=== PATIENT | male | born 1990 | race Caucasian/White ===

== ENCOUNTER 2019-08-13 14:29 | Outpatient (CLI) | payer BC, SELFPAY ==
[2019-08-13 14:50] LABS: Basophils Percent Auto 0.4 % (0.2-1.2); Eosinophils Percent Auto 0.8 % (0-4.4); Hematocrit 44.6 % (42.0-52.0); Hemoglobin 15.3 g/dL (14.0-18.0); Lymphocytes Absolute Auto 1.67 K/mm3 (0.9-3.2); Lymphocytes Percent Auto 33.3 % (18.3-44.2); Mean Corpuscular HGB Conc 34.3 g/dl (32-36); Mean Corpuscular Hemoglobin 29.4 pg (26-34); Mean Corpuscular Volume 85.8 fl (80-100); Mean Platelet Volume 10.7 fl (7.4-10.4); Monocytes Absolute Auto 0.4 K/mm3 (0.1-0.6); Monocytes Percent Auto 8.8 % (2.6-8.5); Neutrophils Absolute Auto 2.8 K/mm3 (1.3-6.7); Neutrophils Percent Auto 56.7 % (45.5-73.1); Platelet Count Result 185 k/mm3 (150-375); Red Cell Distribution Width 12.3 % (11.5-14.5)
== END 2019-08-13 14:30 | disposition home or self-care (01) ==
LOC: ANHLAB 14:32
PROVIDERS: PCP Family Medicine; Visit Provider Physician Assistant
DX: L53.9 Erythematous condition, unspecified (principal)
CPT/HCPCS: 36415; 85025

== ENCOUNTER 2019-12-08 14:40 | Outpatient (CLI) | payer BC, SELFPAY ==
--- NOTE | ~2019-12-08 | XR_ITS ---
EXAMINATION: XR lumbar spine 2-3V EXAM DATE: 12/08/2019 15:07 INDICATION: Low back pain. Bilateral leg pain. TECHNIQUE: Lumber spine frontal, lateral, lateral L5-S1 projections for interpretation. There is no prior study for comparison. Correlation was made with CT lumbar spine from 2012. FINDINGS: There is unilateral pars defect identified at the L3 level on the lateral projection, was an acute or subacute fracture of the right pars interarticularis on CT scan in 2012. No other pars de fects identified. The vertebral bodies are aligned in the AP dimension. Mild diffuse thoracolumbar disc disease with tiny Schmorl's nodes. The vertebral body heights are maintained. Minimal lumbar fac et arthropathy. Sacrum, sacroiliac joints, sacral arcuate lines are intact. IMPRESSION: 1. Chronic right L3 spondylolysis. 2. Mild lumbar disc disease. Reviewed, dictated and finalized at location A.
--- NOTE | ~2019-12-08 | XR_ITS ---
EXAMINATION: XR hip BI 2V w AP pelvis EXAM DATE: 12/08/2019 15:08 INDICATION: Low back and bilateral leg pain. TECHNIQUE: Each hip imaged independently (separate right and also left hip) 'frog leg' and frontal p rojections for interpretation. Frontal projection pelvis. There is no prior study for comparison. FINDINGS: No radiographic evidence of hip avascular necrosis. Sacrum, sacroiliac joints, sacral arc uate lines are intact. Hip and sacroiliac joints are symmetric and unremarkable. There are no acute f ractures or dislocations identified. There is no subcutaneous gas. The soft tissue is unremarkable. There are no radiopaque foreign bodies. IMPRESSION: Unremarkable pelvis, hip exam. Reviewed, dictated and finalized at location A.
== END 2019-12-08 14:41 | disposition home or self-care (01) ==
PROVIDERS: PCP Family Medicine; Visit Provider Physician Assistant
DX: M51.36 Other intervertebral disc degeneration, lumbar region (principal); M47.896 Other spondylosis, lumbar region
CPT/HCPCS: 72100; 73521

== ENCOUNTER 2020-03-23 09:50 | Outpatient (CLI) | payer BC, SELFPAY ==
[2020-03-23 10:23] LABS: Hematocrit 45.8 % (42.0-52.0); Hemoglobin 15.9 g/dL (14.0-18.0); Mean Corpuscular HGB Conc 34.7 g/dl (32-36); Mean Corpuscular Hemoglobin 29.4 pg (26-34); Mean Corpuscular Volume 84.7 fl (80-100); Mean Platelet Volume 10.5 fl (7.4-10.4); Platelet Count Result 183 k/mm3 (150-375); Red Blood Count 5.41 M/mm3 (4.6-6.20); White Blood Count 4.8 K/mm3 (4.5-10.0)
[2020-03-23 10:36] LABS: Alanine Aminotransferase 31 U/L (4-50); Albumin Level 4.5 g/dL (3.5-5.1); Alkaline Phosphatase 55 U/L (38-126); Anion Gap 6 mmol/L (8-16); Aspartate Amino Transferase 30 U/L (17-59); Bilirubin,Total 0.7 mg/dL (0.2-1.3); Blood Urea Nitrogen 13 mg/dL (9-20); Calcium 9.2 mg/dL (8.4-10.2); Carbon Dioxide 29 mmol/L (22-30); Chloride 103 mmol/L (98-107); Estimated Glomerular Filt Rate > 60; Glucose 104 mg/dL (75-110); Potassium 4.5 mmol/L (3.4-5.0); Sodium 138 mmol/L (137-145)
[2020-03-23 11:41] LABS: Folic Acid 19.7 ng/mL (2.76->20)
[2020-03-28 00:06] LABS: Vitamin D 1,25 (OH)2 Total 58 pg/mL (18-72); Vitamin D2 1,25 (OH)2 <8 pg/mL; Vitamin D3 1,25 (OH)2 58 pg/mL
== END 2020-03-23 09:51 | disposition home or self-care (01) ==
LOC: ANHLAB 09:52
PROVIDERS: PCP Family Medicine; Visit Provider Physician Assistant
DX: E53.8 Deficiency of other specified B group vitamins (principal); E55.9 Vitamin D deficiency, unspecified; R20.2 Paresthesia of skin
CPT/HCPCS: 36415; 80053; 82607; 82652; 82746; 84443; 85027

== ENCOUNTER 2020-04-11 16:56 | Emergency (ER) | payer BC, SELFPAY ==
--- NOTE | 2020-04-11 17:01 | ED.GENADULT ---
HPI - General Adult General Stated complaint: laceration 2nd finger Time Seen by Provider: 04/11/20 17:01 Source: patient Mode of arrival: ambulatory Limitations: no limitations Related Data Home Medications Medication Instructions Recorded Confirmed hydroxyzine HCl 25 mg tablet 25 mg PO TID PRN 12/08/19 03/30/20 lamotrigine 25 mg tablet 25 mg PO DAILY tablet 12/29/19 03/30/20 Allergies Allergy/AdvReac Type Severity Reaction Status Date / Time Penicillins Allergy Unknown rash Verified 03/30/20 10:09 Review of Systems Review of Systems: Narrative: CONSTITUTIONAL: Denies fever, chills, or sweats. EYES: Denies visual changes, redness, or discharge. ENT: Denies rhinorrhea, congestion, sore throat, or otalgia. CARDIOVASCULAR: Denies chest pain, palpitations, or edema. RESPIRATORY: Denies cough or dyspnea. GASTROINTESTINAL: Denies abdominal pain, nausea, vomiting, or diarrhea. GENITOURINARY: Denies dysuria or hematuria. SKIN: Denies rash or itching. MUSCULOSKELETAL: Denies back pain, joint pain, or myalgia. NEUROLOGIC: Denies headache, numbness, or weakness. PSYCHIATRIC: Denies anxiety or depression. PMFSH Past Medical History Medical History Atypical chest pain GERD (gastroesophageal reflux disease) Family History Family History Father Family history of throat cancer Social History Social History Social History: Single Smoking status: Never smoker Second hand tobacco smoke exposure: No Alcohol intake: never Substance use: never Substance use type: does not use Gender identity (if verbalized by the patient): Male Comments At the time of my signature I agree with nursing past medical history, surgical, social, and family history. There is no relevant family history pertinent to the presenting complaint. Exam Narrative: Exam Narrative: GENERAL: Well-appearing, well-nourished, and in no acute distress. HEAD: Normocephalic, atraumatic. EYES: PERRLA and EOMI. ENT: Nares clear, no rhinorrhea or epistaxis. Mucous membranes moist. NECK: Supple. No lymphadenopathy CHEST: Clear to auscultation. No respiratory distress. HEART: Regular rate and rhythm. No murmur heard. Normal peripheral pulses. ABDOMEN: Soft, nontender, nondistended, normal active bowel sounds. EXTREMITIES: Normal range of motion. No edema. SKIN: Warm, dry, no rash. NEURO: No focal deficits. Alert and oriented x3. Course Vital Signs Vital signs: Vital signs reviewed. Medical Decision Making Differential Diagnosis Differential Diagnosis: Differential diagnosis: Simple, intermediate, or complex laceration. Critical Care Time Critical Care Time Critical Care Time: No Discharge Plan Discharge Prescriptions: No Action hydroxyzine HCl 25 mg tablet 25 mg PO TID PRNRF: 0 lamotrigine 25 mg tablet 25 mg PO DAILY RF: 0
== END 2020-04-11 17:05 | disposition left against medical advice (07) ==
LOC: EXPCOLL 17:01
PROVIDERS: Emergency Provider Internal Medicine Hematology & Oncology; PCP Family Medicine
DX: Z53.21 Procedure and treatment not carried out due to patient leaving prior to being seen by health care provider (principal)
CPT/HCPCS: 99199

== ENCOUNTER 2020-06-25 11:23 | Emergency (ER) | payer BC, SELFPAY ==
--- NOTE | ~2020-06-25 | XR_ITS ---
EXAMINATION: XR chest 1V portable DATE: 06/25/2020 12:20 INDICATION: Shortness of breath. TECHNIQUE: A single frontal view of the chest was obtained. COMPARISON: Chest 2 views 09/08/2015 FINDINGS: The chest demonstrates clear lungs without pneumonia, pleural effusion, or pneumothorax. Th e heart size is normal. IMPRESSION: 1. No acute cardiopulmonary disease. Reviewed, dictated and finalized at location A. 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
[2020-06-25 11:28] VITALS: BP 134/77; PULSE 80; RESP 20; TEMP 36.2; O2SAT 98
--- NOTE | 2020-06-25 12:21 | ED.GENADULT ---
HPI - General Adult General Chief complaint: Unspecified <ZEYNEP Sawyer Last Filed: 06/25/20 12:26> Stated complaint: COVID+, WEAKNESS <ZEYNEP Sawyer Last Filed: 06/25/20 12:26> Time Seen by Provider: 06/25/20 11:35 <ZEYNEP Sawyer Last Filed: 06/25/20 12:26> Source: patient <ZEYNEP Sawyer Last Filed: 06/25/20 12:26> Mode of arrival: ambulatory <ZEYNEP Sawyer Last Filed: 06/25/20 12:26> Limitations: no limitations <ZEYNEP Sawyer Last Filed: 06/25/20 12:26> History of Present Illness HPI narrative: Patient is a 29-year-old male who presents notes that he discovered he was Covid positive this morning with positive test result patient notes he has been mainly asymptomatic states today he lost sense of smell with decreased taste and also noting some shortness of breath denies cough does note some congestion denies fever or other URI symptoms patient also notes he was at a [employer] last night intoxicated but denies emesis or abdominal pain or chest pain notes that he has had some loose stools presents in no distress normal vital signs <ZEYNEP Sawyer Last Filed: 06/25/20 12:26> Related Data Home medications: Home Medications Medication Instructions Recorded Confirmed hydroxyzine HCl 25 mg tablet 25 mg PO TID PRN 12/08/19 03/30/20 lamotrigine 25 mg tablet 25 mg PO DAILY tablet 12/29/19 03/30/20 <ZEYNEP Sawyer Last Filed: 06/25/20 12:26> Allergies/adverse reactions: Allergies Allergy/AdvReac Type Severity Reaction Status Date / Time Penicillins Allergy Unknown rash Verified 04/19/20 15:11 <ZEYNEP Sawyer Last Filed: 06/25/20 12:26> Review of Systems Review of Systems: All systems reviewed & are unremarkable except as noted in HPI and below <ZEYNEP Sawyer Last Filed: 06/25/20 12:26> PMFSH Past Medical History Medical History: Medical History Atypical chest pain GERD (gastroesophageal reflux disease) <Roman Catalan PA-C - Last Filed: 06/25/20 12:26> Surgical History Surgical History: Surgical History History of tonsillectomy <Roman Catalan PA-C - Last Filed: 06/25/20 12:26> Family History Family History: Family History Father Family history of throat cancer <Roman Catalan PA-C - Last Filed: 06/25/20 12:26> Social History Social History: Social History Social History: Single Smoking status: Former smoker Second hand tobacco smoke exposure: No Alcohol intake: current Substance use: never Substance use type: does not use Gender identity (if verbalized by the patient): Male <Roman Catalan PA-C - Last Filed: 06/25/20 12:26> Exam Narrative: Exam Narrative: GENERAL: Well-appearing, well-nourished, and in no acute distress. HEAD: Normocephalic, atraumatic. EYES: PERRLA and EOMI. ENT: Nares clear, no rhinorrhea or epistaxis. Mucous membranes moist. CHEST: Clear to auscultation. No respiratory distress. No wheezes rales or rhonchi HEART: Regular rate and rhythm. No murmur heard. EXTREMITIES: Normal range of motion. No edema. SKIN: Warm, dry, no rash. NEURO: No focal deficits. Alert and oriented x3. PSYCH: Normal mood and affect. <Roman Catalan PA-C - Last Filed: 06/25/20 12:26> Course Course Emergency Course: Patient in the room in no distress aware of case findings treatment plan diagnosis advised to self quarantine no pneumonia no hypoxemia patient notes he will follow with primary care this is felt appropriately will be treated symptomatically has been advised to get a home oximeter and stay hydrated <Roman Catalan PA-C - Last Filed: 06/25/20 12:26> Vital
[2020-06-25 13:01] VITALS: BP 120/75; PULSE 66; RESP 17; TEMP 37.5; O2SAT 100
== END 2020-06-25 13:03 | disposition home or self-care (01) ==
PROVIDERS: Emergency Provider General Practice; PCP Family Medicine
DX: U07.1 COVID-19 (principal); K21.9 Gastro-esophageal reflux disease without esophagitis; Z87.891 Personal history of nicotine dependence
CPT/HCPCS: 71045; 99283

== ENCOUNTER 2020-07-06 13:41 | Emergency (ER) | payer BC, SELFPAY ==
--- NOTE | ~2020-07-06 | XR_ITS ---
XR chest 1V portable DATE: 07/06/2020 14:27 INDICATION: Chest pain, palpitations TECHNIQUE: Portable upright AP chest on 07/06/2020 at 1427 hours COMPARISON: 06/25/2020 portable AP chest FINDINGS: Normal heart size. No hilar or mediastinal enlargement. No pulmonary infiltrate or consolid ation, pleural effusion or pulmonary vascular congestion or pneumothorax. IMPRESSION: No active cardiopulmonary disease Reviewed, dictated and finalized at location A. RANCE EXAMINER
[2020-07-06 13:46] VITALS: BP 145/89; PULSE 83; RESP 18; TEMP 36.4; O2SAT 100
[2020-07-06 13:49] VITALS: BP 142/82; PULSE 77; RESP 17; O2SAT 97
--- NOTE | 2020-07-06 13:51 | ECG_ITS ---
Measurements Intervals [place] Rate: 82 P: 42 WY: 134 QRS: 51 QRSD: 104 T: 14 QT: 356 QTc: 416 Interpretive Statements SINUS RHYTHM WITH SINUS ARRHYTHMIA T WAVE ABNORMALITY IN ANTERIOR LEADS- CONSIDER ISCHEMIA ABNORMAL ECG Electronically Signed On 07-06-2020 14:32:49 [place] by Pito Molina D.O.
[2020-07-06 14:01] LABS: Basophils Percent Auto 0.3 % (0.2-1.2); Eosinophils Absolute Auto 0.1 K/mm3 (0-0.3); Hemoglobin 16.7 g/dL (14.0-18.0); Immature Granulocyte Absolute 0.02 K/mm3 (0.00-0.031); Immature Granulocyte Percent A 0.3 % (0-0.5); Lymphocytes Absolute Auto 1.72 K/mm3 (0.9-3.2); Lymphocytes Percent Auto 28.3 % (18.3-44.2); Mean Corpuscular HGB Conc 34.8 g/dl (32-36); Mean Corpuscular Hemoglobin 29.9 pg (26-34); Mean Corpuscular Volume 85.9 fl (80-100); Mean Platelet Volume 10.5 fl (7.4-10.4); Monocytes Absolute Auto 0.4 K/mm3 (0.1-0.6); Monocytes Percent Auto 7.1 % (2.6-8.5); Neutrophils Absolute Auto 3.8 K/mm3 (1.3-6.7); Platelet Count Result 194 k/mm3 (150-375); Red Blood Count 5.59 M/mm3 (4.6-6.20); Red Cell Distribution Width 12.3 % (11.5-14.5); White Blood Count 6.1 K/mm3 (4.5-10.0)
[2020-07-06 14:10] LABS: Prothrombin Time 13.6 Seconds (11.1-14.7)
[2020-07-06 14:11] LABS: Partial Thromboplastin Time 27.5 SECONDS (22.3-36.8)
[2020-07-06 14:14] LABS: Anion Gap 8 mmol/L (8-16); Blood Urea Nitrogen 14 mg/dL (9-20); Calcium 9.3 mg/dL (8.4-10.2); Carbon Dioxide 28 mmol/L (22-30); Chloride 102 mmol/L (98-107); Estimated CRCL calculation 127 ml/min; Estimated Glomerular Filt Rate > 60; Glucose 140 mg/dL (75-110); Potassium 4.3 mmol/L (3.4-5.0); Sodium 138 mmol/L (137-145)
[2020-07-06 14:27] LABS: Troponin I < 0.012 ng/mL (0.000-0.034)
[2020-07-06 15:20] VITALS: BP 118/80; PULSE 69; RESP 17; O2SAT 98
[2020-07-06 15:53] VITALS: BP 119/79; PULSE 81; RESP 16; O2SAT 99
--- NOTE | 2020-07-06 16:03 | ED.ARRPALP ---
HPI - Arrhythmia/Palpitations General Chief Complaint: Arrhythmia/Palpitations Stated Complaint: heart palpitations Time Seen by Provider: 07/06/20 13:54 History of Present Illness HPI narrative: Patient is a 29-year-old male who presents to the ER with feeling of having skipped heartbeats. Reports he has been noticing that his heart beats hard and then he will miss a beat. Sometimes it makes him feel like he is lightheaded. Seems last for the second or last. No chest pain or chest pressure. Has had recent diagnosis of COVID-19 and has not yet been cleared. He began having symptoms on 06/22/2020. Currently not having fevers or chills or sweats. No productive cough or shortness of breath. Just persistent fatigue. Reports his symptoms seem to worsen if he drinks caffeine. Related Data Allergies Allergy/AdvReac Type Severity Reaction Status Date / Time Penicillins Allergy Unknown rash Verified 07/06/20 13:48 Review of Systems Review of Systems: All systems reviewed & are unremarkable except as noted in HPI and below Constitutional: Constitutional: Denies chills, Reports fatigue and Denies fever(s) ENT: Denies nasal congestion and Denies sore throat Cardiovascular: Cardiovascular: Denies chest pain, Denies rapid heart rate and Denies radiating jaw, neck or arm pain Comments: Skipped beats Respiratory: Respiratory: Denies cough and Denies dyspnea Gastrointestinal: Gastrointestinal: Denies nausea and Denies vomiting Neurologic: Reports dizziness, Denies syncope and Denies headache(s) PMFSH Past Medical History Medical History Atypical chest pain GERD (gastroesophageal reflux disease) Surgical History Surgical History History of tonsillectomy Family History Family History Father Family history of throat cancer Social History Social History Social History: Single Smoking status: Former smoker Second hand tobacco smoke exposure: No Alcohol intake: current Substance use: never Substance use type: does not use Gender identity (if verbalized by the patient): Male Exam Narrative: Exam Narrative: GENERAL: Well-appearing, well-nourished, and in no acute distress. HEAD: Normocephalic, atraumatic. ENT: Mucous membranes moist. CHEST: Clear to auscultation. No respiratory distress. HEART: Regular rate and rhythm. Normal peripheral pulses. ABDOMEN: Soft, nontender, nondistended. EXTREMITIES: Normal range of motion. No edema. NEURO: Alert and oriented x3. PSYCH: Normal mood and affect. Course Course Emergency Course: Patient did have a few PVCs on monitor while in the ER. Suspect he may be having symptomatic PVCs. No actual runs. Discharge home. Follow-up with his PCP, discuss Holter monitoring if needed. Avoid caffeine. Vital Signs Vital signs: Vital Signs Temperature 97.5 F L 07/06/20 13:46 Pulse Rate 83 07/06/20 13:46 Respiratory Rate 18 07/06/20 13:46 Blood Pressure 145/89 H 07/06/20 13:46 Pulse Oximetry 100 07/06/20 13:46 Temperature 97.5 F L 07/06/20 13:46 Pulse Rate 81 07/06/20 15:53 Respiratory Rate 16 07/06/20 15:53 Blood Pressure 119/79 07/06/20 15:53 Pulse Oximetry 99 07/06/20 15:53 MDM - Arrhythmia/Palpitations Lab Data Result diagrams: 07/06/20 13:53 07/06/20 13:53 Labs: Lab Results 07/06/20 07/06/20 07/06/20 Range/Units 13:53 13:53 13:53 WBC 6.1 (4.5-10.0) K/mm3 RBC 5.59 (4.6-6.20) M/mm3 Hgb 16.7 (14.0-18.0) g/dL Hct 48.0 (42.0-52.0) % MCV 85.9 (80-100) fl MCH 29.9 (26-34) pg MCHC 34.8 (32-36) g/dl RDW 12.3 (11.5-14.5) % Plt Count 194 (150-375) k/mm3 MPV 10.5 H (7.4-10.4) fl Immature Gran % (Auto) 0.3 (0-0.5) % Neut % (
[2020-07-06 17:01] VITALS: BP 119/80; PULSE 63; RESP 18; O2SAT 100
== END 2020-07-06 17:03 | disposition home or self-care (01) ==
PROVIDERS: Emergency Provider Emergency Medicine; PCP Family Medicine
DX: I49.3 Ventricular premature depolarization (principal); K21.9 Gastro-esophageal reflux disease without esophagitis
CPT/HCPCS: 36415; 71045; 80048; 84484; 85025; 85610; 85730; 93005; 99284

== ENCOUNTER 2020-09-15 13:48 | Outpatient (CLI) | payer BC, SELFPAY ==
[2020-09-15 16:27] LABS: Rheumatoid Factor < 8.6 IU/ML (<12)
[2020-09-19 09:09] LABS: ANA Cascade Screen Negative (Negative)
== END 2020-09-15 13:49 | disposition home or self-care (01) ==
LOC: ANHLAB 13:51
PROVIDERS: PCP Family Medicine; Visit Provider Nurse Practitioner Family
DX: M25.50 Pain in unspecified joint (principal); R53.83 Other fatigue
CPT/HCPCS: 36415; 86038; 86430

== ENCOUNTER 2020-10-06 09:56 | Outpatient (CLI) | payer BC, SELFPAY ==
--- NOTE | ~2020-10-06 | US_ITS ---
US abdomen complete EXAMINATION: US Abdomen Complete INDICATION: Abdomen pain PROCEDURE: Realtime High Resolution abdomen ultrasound. COMPARISON: No prior studies for comparison FINDINGS: Gallbladder within normal limits. No gallstones, pericholecystic fluid, gallbladder wall t hickening or biliary dilatation. Common bile duct measures 3 mm. Liver echotexture within normal limits without focal mass. Pancreas within normal limits. Pancreati c tail is obscured by bowel gas. Spleen is unremarkeable. Renal echotexture is within normal limits bilaterally without hydronephrosis, contour deforming mass or renal stone. Right kidney measures 9.7 cm. Left kidney measures 11.2 cm. Visualized aspects of the aorta and IVC are within normal limits. Portal vein is patent. No sonograph ic Calixto's sign indicated by the technologist. IMPRESSION: 1: Normal abdominal ultrasound. Reviewed, dictated and finalized at location B.
== END 2020-10-06 09:57 | disposition home or self-care (01) ==
PROVIDERS: PCP Family Medicine; Visit Provider Physician Assistant
DX: R11.2 Nausea with vomiting, unspecified (principal); R10.9 Unspecified abdominal pain
CPT/HCPCS: 76700

== ENCOUNTER 2021-03-22 16:11 | Emergency (ER) | payer BC, SELFPAY ==
[2021-03-22 16:15] VITALS: BP 149/88; PULSE 68; RESP 18; TEMP 36.4; O2SAT 97
[2021-03-22] MEDS: CYCLOBENZAPRINE HCL 10 MG TABLET PO (16:39)
--- NOTE | 2021-03-22 16:58 | ED.UPPEXIN ---
HPI - Extremity Injury (Upper) General Chief Complaint: Extremity Injury, Upper Stated Complaint: arm numbness Time Seen by Provider: 03/22/21 16:22 Source: patient Mode of arrival: ambulatory Limitations: no limitations History of Present Illness HPI narrative: 30-year-old with no major medical problems here with complaints of right forearm pain. Patient states that he was working on his car with a wrench for quite some time started having swelling of the right forearm, and was unable to move the arm. By the time he came to the ER he states that swelling has much come down. He also states that he still having some tingling numbness. Patient states that he had Covid few months ago and also developed cardiomyopathy. He had a recent MRI which did not show any further evidence of cardiomyopathy. He states cardiac powers he is feeling much better. complaint: injury to: right Onset (ago): hour(s) (2) Place: work Severity: moderate Relieving factors: immobilization Exacerbating factors: none Associated symptoms: denies other symptoms Related Data Allergies Allergy/AdvReac Type Severity Reaction Status Date / Time Penicillins Allergy Unknown rash Verified 03/22/21 16:31 Review of Systems Review of Systems: All systems reviewed & are unremarkable except as noted in HPI and below Constitutional: Constitutional: Reports no additional constitutional complaints Eyes: Eyes: Reports no additional eye complaints ENT: Reports system reviewed and no additional complaints, except as documented Cardiovascular: Cardiovascular: Reports no additional cardiovascular complaints Respiratory: Respiratory: Reports no additional respiratory complaints Musculoskeletal: Musculoskeletal: Reports as per HPI Neurologic: Reports system reviewed and no additional complaints, except as documented [facility] Past Medical History Medical History Atypical chest pain GERD (gastroesophageal reflux disease) Surgical History Surgical History History of tonsillectomy Family History Family History Father Family history of throat cancer Social History Social History Social History: Single Second hand tobacco smoke exposure: No Alcohol intake: current Substance use: never Substance use type: does not use Gender identity (if verbalized by the patient): Male Exam Narrative: GENERAL: Well-appearing, well-nourished, and in no acute distress. HEAD: Normocephalic, atraumatic. EYES: PERRLA and EOMI. NECK: Supple. CHEST: Clear to auscultation. No respiratory distress. HEART: Regular rate and rhythm. No murmur heard. Normal peripheral pulses. ABDOMEN: Soft, nontender, nondistended, normal active bowel sounds. EXTREMITIES: Normal range of motion. No edema. Examination of the right forearm shows no evidence of any soft tissue swelling has good range of motion. There is check with nursing good radial pulse. SKIN: Warm, dry, no rash. NEURO: No focal deficits. Alert and oriented x3. PSYCH: Normal mood and affect. Course Course Emergency Course: At this time it appears to be more muscle strain from holding a wrench for quite some time. And his symptoms are much improved. Advised him to take muscle relaxers as needed. Ibuprofen for pain Vital Signs Vital signs: Vital Signs Temperature 36.4 C 03/22/21 16:15 Pulse Rate 68 03/22/21 16:15 Respiratory Rate 18 03/22/21 16:15 Blood Pressure 149/88 H 03/22/21 16:15 Pulse Oximetry 97 03/22/21 16:15 Temperature 36.4 C 03/22/21 16:15 Pulse Rate 68 03/22/21 16:15 Respiratory Rate 18 03/22/21 16:15 Blood Pressure 149/88 H 03/22/21 16:15 Pulse Oximetry 97 03/22/21 16:15 Discharge Plan Discharge Clinical Impression: Muscle strain of forearm Qualifiers
== END 2021-03-22 17:20 | disposition home or self-care (01) ==
PROVIDERS: Emergency Provider Family Medicine; PCP Family Medicine
DX: S56.911A Strain of unspecified muscles, fascia and tendons at forearm level, right arm, initial encounter (principal); Z86.16 Personal history of COVID-19; K21.9 Gastro-esophageal reflux disease without esophagitis; X50.3XXA Overexertion from repetitive movements, initial encounter
CPT/HCPCS: 99283; A9270

== ENCOUNTER 2021-07-11 11:11 | Emergency (ER) | payer BC, SELFPAY | END 2021-07-12 01:28 | disposition left against medical advice (07) | LOC: ANHED 11:30 | PROVIDERS: PCP Family Medicine | DX: Z53.21 Procedure and treatment not carried out due to patient leaving prior to being seen by health care provider (principal) | CPT/HCPCS: 99199 ==

== ENCOUNTER 2022-01-31 10:50 | Outpatient (CLI) | payer BC, SELFPAY ==
[2022-01-31 11:22] LABS: Basophils Percent Auto 0.2 % (0.2-1.2); Eosinophils Absolute Auto 0.1 K/mm3 (0-0.3); Eosinophils Percent Auto 1.1 % (0-4.4); Hematocrit 44.2 % (42.0-52.0); Hemoglobin 15.1 g/dL (14.0-18.0); Immature Granulocyte Absolute 0.01 K/mm3 (0.00-0.031); Immature Granulocyte Percent A 0.2 % (0-0.5); Lymphocytes Absolute Auto 1.59 K/mm3 (0.9-3.2); Lymphocytes Percent Auto 35.7 % (18.3-44.2); Mean Corpuscular HGB Conc 34.2 g/dl (32-36); Mean Corpuscular Volume 84.8 fl (80-100); Mean Platelet Volume 10.5 fl (7.4-10.4); Monocytes Absolute Auto 0.3 K/mm3 (0.1-0.6); Neutrophils Absolute Auto 2.5 K/mm3 (1.3-6.7); Neutrophils Percent Auto 55.8 % (45.5-73.1); Platelet Count Result 183 k/mm3 (150-375); Red Blood Count 5.21 M/mm3 (4.6-6.20); Red Cell Distribution Width 12.4 % (11.5-14.5); White Blood Count 4.5 K/mm3 (4.5-10.0)
[2022-01-31 11:35] LABS: Alanine Aminotransferase 32 U/L (6-50); Albumin Level 4.5 g/dL (3.5-5.1); Alkaline Phosphatase 65 U/L (38-126); Anion Gap 8 mmol/L (8-16); Aspartate Amino Transferase 28 U/L (17-59); Bilirubin,Total 0.5 mg/dL (0.2-1.3); Blood Urea Nitrogen 13 mg/dL (9-20); Calcium 8.7 mg/dL (8.4-10.2); Carbon Dioxide 25 mmol/L (22-30); Chloride 105 mmol/L (98-107); Cholesterol 193 mg/dL (0-200); Estimated Glomerular Filt Rate > 60; Glucose 98 mg/dL (65-110); HDL Direct 29 mg/dL; Potassium 4.3 mmol/L (3.4-5.0); Sodium 138 mmol/L (137-145); Triglycerides 116 mg/dL (<150)
[2022-01-31 11:41] LABS: Hemoglobin A1C 5.2 % (<5.7)
[2022-01-31 11:46] LABS: LDL Cholesterol Direct 113 mg/dL
[2022-01-31 12:23] LABS: Add Urine Microscopic? NO; Appearance Urine Clear (Clear); Bilirubin Urine Negative (Negative); Blood Urine Negative (Negative); Color Urine Yellow (Yellow); Glucose Urine UA Negative (Negative); Ketones Urine Negative (Negative); Leukocyte Esterase Ur Negative LEU/UL (NEGATIVE); Nitrate Urine Negative (Negative); Protein Urine Negative (Negative); Specific Grav Ur >= 1.030 (1.001-1.035); Urobilinogen Urine 0.2 mg/dL (<2.0); pH Urine 5.5 (5.0-9.0)
== END 2022-01-31 10:51 | disposition home or self-care (01) ==
LOC: ANHLAB 10:52
PROVIDERS: PCP Family Medicine; Visit Provider Physician Assistant
DX: E66.9 Obesity, unspecified (principal); N52.9 Male erectile dysfunction, unspecified; R00.2 Palpitations; R11.0 Nausea; R73.01 Impaired fasting glucose; U07.1 COVID-19
CPT/HCPCS: 36415; 80053; 80061; 81003; 83036; 84443; 85025

== ENCOUNTER → 2022-04-05 10:23 | Outpatient (CLI) | payer BC, SELFPAY ==
--- NOTE | ~2022-04-05 | XR_ITS ---
EXAMINATION:XR_CERV2-3V_CR DATE: 04/05/2022 10:50 INDICATION: Neck pain TECHNIQUE: AP, lateral, and odontoid views of the cervical spine are provided. COMPARISON: None FINDINGS: There is straightening of the cervical spine which can be positional or due to muscular spa sm. Alignment is normal. The odontoid is intact. No fracture is identified. Vertebral body heights an d disk spaces are normal. Prevertebral soft tissues are normal. IMPRESSION: 1. No acute osseous abnormality. Reviewed, dictated and finalized at location A.
--- NOTE | ~2022-04-05 | XR_ITS ---
EXAMINATION: XR knee RT 3V DATE: 04/05/2022 10:50 INDICATION: Right knee pain. TECHNIQUE: 3 views of right knee were obtained. COMPARISON: None. FINDINGS: Bone alignment is normal. No fracture. There is mild osteoarthritis of medial and patellofe moral compartments characterized by tiny osteophytes. No joint space narrowing. No knee joint effusio n. IMPRESSION: 1. Mild right knee osteoarthritis. Reviewed, dictated and finalized at location A.
== END ==
PROVIDERS: PCP Family Medicine; Visit Provider Family Medicine
DX: M54.2 Cervicalgia (principal); M17.11 Unilateral primary osteoarthritis, right knee
CPT/HCPCS: 72040; 73562

== ENCOUNTER 2022-04-25 13:47 | Emergency (ER) | payer BC, SELFPAY ==
[2022-04-25 13:50] VITALS: BP 149/81; PULSE 90; RESP 20; TEMP 36.2; O2SAT 98
[2022-04-25 14:41] LABS: Influenza A QL RT-PCR Negative (Negative); Influenza B QL RT-PCR Negative (Negative); SARS-CoV-2 RNA PCR Positive
--- NOTE | 2022-04-25 17:17 | ED.GENADULT ---
HPI - General Adult General Chief complaint: Upper Respiratory Infection Stated complaint: covid + today, back pain Time Seen by Provider: 04/25/22 17:09 Source: patient Mode of arrival: ambulatory Limitations: no limitations History of Present Illness HPI narrative: Patient presents complaints of generalized body aches, intermittent dizziness, cough, nasal congestion that started 3 days ago. Patient states tested positive today for COVID-19. Overall states does not feel well but denies other problems or complaints. Appears to be in no distress at this time. Related Data Home Medications Medication Instructions Recorded Confirmed No Home Medications 01/25/22 01/25/22 Allergies Allergy/AdvReac Type Severity Reaction Status Date / Time Penicillins Allergy Unknown rash Verified 04/04/22 15:11 Review of Systems Review of Systems: CONSTITUTIONAL: Subjective fever, chills. EYES: Denies visual changes, redness, or discharge. ENT: Nasal congestion CARDIOVASCULAR: Denies chest pain, palpitations, or edema. RESPIRATORY: Cough but denies difficulty breathing. GASTROINTESTINAL: Denies abdominal pain, nausea, vomiting, or diarrhea. GENITOURINARY: Denies dysuria or hematuria. SKIN: Denies rash or itching. MUSCULOSKELETAL: Denies back pain, joint pain, or myalgia. NEUROLOGIC: Headache with intermittent dizziness at times. PSYCHIATRIC: Denies anxiety or depression. [facility] Past Medical History Medical History Atypical chest pain GERD (gastroesophageal reflux disease) Obesity Surgical History Surgical History History of tonsillectomy Family History Family History Father Family history of throat cancer Social History Social History Social History: Single Smoking status: Never smoker Second hand tobacco smoke exposure: No Alcohol intake: current Alcohol use details: Occasionally Substance use: never Substance use type: does not use Gender identity (if verbalized by the patient): Male Sexual Orientation (if Verbalized by the Patient): Straight or Heterosexual Exam Narrative: GENERAL: Well-appearing, well-nourished, and in no acute distress. HEAD: Normocephalic, atraumatic. EYES: PERRLA and EOMI. ENT: Nares clear, no rhinorrhea or epistaxis. Mucous membranes moist. NECK: Supple. CHEST: Clear to auscultation. No respiratory distress. HEART: Regular rate and rhythm. No murmur heard. Normal peripheral pulses. ABDOMEN: Soft, nontender, nondistended, normal active bowel sounds. EXTREMITIES: Normal range of motion. No edema. SKIN: Warm, dry, no rash. NEURO: No focal deficits. Alert and oriented x3. PSYCH: Normal mood and affect. Course Vital Signs Vital signs: Vital Signs Temperature 36.2 C L 04/25/22 13:50 Pulse Rate 90 04/25/22 13:50 Respiratory Rate 20 04/25/22 13:50 Blood Pressure 149/81 H 04/25/22 13:50 Pulse Oximetry 98 04/25/22 13:50 Oxygen Delivery Room Air 04/25/22 13:50 Temperature 36.2 C L 04/25/22 13:50 Pulse Rate 90 04/25/22 13:50 Respiratory Rate 20 04/25/22 13:50 Blood Pressure 149/81 H 04/25/22 13:50 Pulse Oximetry 98 04/25/22 13:50 Oxygen Delivery Autopap 04/25/22 17:07 Medical Decision Making Vital Signs Vital Signs: Vital Signs Temperature 36.2 C L 04/25/22 13:50 Pulse Rate 90 04/25/22 13:50 Respiratory Rate 20 04/25/22 13:50 Blood Pressure 149/81 H 04/25/22 13:50 Pulse Oximetry 98 04/25/22 13:50 Oxygen Delivery Room Air 04/25/22 13:50 Temperature 36.2 C L 04/25/22 13:50 Pulse Rate 90 04/25/22 13:50 Respiratory Rate 20 04/25/22 13:50 Blood Pressure 149/81 H 04/25/22 13:50 Pulse Oximetry 98 04/25/22 13:50 Oxygen Delivery Autopap 04/25/22 17:07 Lab Data L
[2022-04-25] MEDS: IBUPROFEN 400 MG TABLET 800 MG PO (17:27)
[2022-04-25 17:28] VITALS: BP 140/92; PULSE 88; RESP 17; O2SAT 97
== END 2022-04-25 17:35 | disposition home or self-care (01) ==
PROVIDERS: Emergency Medicine; Emergency Provider Nurse Practitioner; PCP Family Medicine
DX: U07.1 COVID-19 (principal); K21.9 Gastro-esophageal reflux disease without esophagitis
CPT/HCPCS: 87502; 99283; A9270; C9803; U0003; U0005

== ENCOUNTER 2022-05-29 08:32 | Outpatient (CLI) | payer BC, SELFPAY ==
--- NOTE | ~2022-05-29 | MR_ITS ---
EXAMINATION: MR knee RT wo con DATE: 05/29/2022 09:13 INDICATION: Generalized right knee pain and popping post injury TECHNIQUE: Magnetic resonance imaging (MRI) of the right knee was performed without intravenous contr ast. Sequences included coronal PD-weighted FSE, coronal PD-weighted FS FSE, sagittal T2-weighted FS E, sagittal PD-weighted FS FSE and axial PD weighted fat saturated FSE. COMPARISON: Right knee radiographs dated 04/05/2022 FINDINGS: Medial compartment: Complex tear of the posterior horn of the medial meniscus with horizontal longitudinal tear plane in the peripheral posterior half of the meniscus but which anteriorly extends to contact both the superi or and inferior articular surfaces. Articular cartilage is normal. Lateral compartment: Lateral meniscus is normal. Articular cartilage is normal. Patellofemoral compartment: Articular cartilage is normal. Ligaments and tendons: Anterior and posterior cruciate ligaments are normal. The medial collateral ligament and fibular tammi ateral ligament complex are normal. Mild distal quadriceps tendinopathy with small enthesophyte at it s patellar insertion. The patellar tendon is normal. The visualized medial and lateral hamstring tend ons as well as the iliotibial band are normal. Fluid: Physiologic amount of fluid in the joint space. No loose osteochondral bodies identified. Osseous/other: Normal marrow signal. No fracture or pathologic marrow replacing process. IMPRESSION: 1. Complex tear at the posterior horn of the medial meniscus. Reviewed, dictated and finalized at location A. UNT COORDINATOR
== END 2022-05-29 08:33 ==
PROVIDERS: PCP Family Medicine; Visit Provider Orthopaedic Surgery
DX: S83.231A Complex tear of medial meniscus, current injury, right knee, initial encounter (principal); X58.XXXA Exposure to other specified factors, initial encounter
CPT/HCPCS: 73721

== ENCOUNTER → 2022-05-29 08:36 | Outpatient (CLI) | payer BC, SELFPAY ==
--- NOTE | ~2022-05-29 | XR_ITS ---
XR wrist RT w scaphoid DATE: 05/29/2022 08:55 INDICATION: Lateral wrist pain for one month. No injury. TECHNIQUE: 5 views COMPARISON: None FINDINGS: No fracture or dislocation, periosteal reaction or bone destruction, joint space narrowing, erosive change or chondrocalcinosis. IMPRESSION: Negative Reviewed, dictated and finalized at location A. RUMENT TESTER IMPRESSION: Negative
== END ==
PROVIDERS: PCP Family Medicine; Visit Provider Physician Assistant
DX: M25.531 Pain in right wrist (principal)
CPT/HCPCS: 73110

== ENCOUNTER 2022-11-05 01:46 | Day surgery (SDC) | payer BC, SELFPAY ==
[2022-11-02 14:33] VITALS: BMI 35.4
[2022-11-05] VITALS (20 sets, daily range): BP systolic 115–136; BP diastolic 61–83; PULSE 51–72; RESP 12–19; TEMP 36.5; O2SAT 96–100; BMI 36.1
[2022-11-05 07:38] LABS: Basophils Percent Auto 0.7 % (0.2-1.2); Eosinophils Absolute Auto 0.2 K/mm3 (0-0.3); Eosinophils Percent Auto 3.9 % (0-4.4); Hematocrit 45.3 % (42.0-52.0); Hemoglobin 15.7 g/dL (14.0-18.0); Immature Granulocyte Absolute 0.01 K/mm3 (0.00-0.031); Immature Granulocyte Percent A 0.2 % (0-0.5); Lymphocytes Absolute Auto 2.06 K/mm3 (0.9-3.2); Lymphocytes Percent Auto 44.7 % (18.3-44.2); Mean Corpuscular HGB Conc 34.7 g/dl (32-36); Mean Corpuscular Hemoglobin 29.5 pg (26-34); Mean Platelet Volume 10.7 fl (7.4-10.4); Monocytes Absolute Auto 0.5 K/mm3 (0.1-0.6); Monocytes Percent Auto 9.8 % (2.6-8.5); Neutrophils Absolute Auto 1.9 K/mm3 (1.3-6.7); Neutrophils Percent Auto 40.7 % (45.5-73.1); Platelet Count Result 178 k/mm3 (150-375); Red Blood Count 5.33 M/mm3 (4.6-6.20); Red Cell Distribution Width 12.5 % (11.5-14.5); White Blood Count 4.6 K/mm3 (4.5-10.0)
[2022-11-05 07:47] LABS: Anion Gap 7 mmol/L (8-16); Blood Urea Nitrogen 17 mg/dL (9-20); Calcium 8.7 mg/dL (8.4-10.2); Carbon Dioxide 28 mmol/L (22-30); Chloride 105 mmol/L (98-107); Estimated CRCL calculation 140 ml/min; Estimated Glomerular Filt Rate > 60; Glucose 97 mg/dL (65-110); Potassium 3.8 mmol/L (3.4-5.0); Sodium 140 mmol/L (137-145)
--- NOTE | 2022-11-05 08:42 | WPDMODSED ---
Moderate Sedation Note-Pt Data Patient Data Diagnosis: Symptomatic PVCs following coronavirus abnormal nuclear stress test previous normal coronary CTA Present Complaint: intermittent chest pain Procedure to be performed/Plan: left heart catheterization Allergies Allergy/AdvReac Type Severity Reaction Status Date / Time Penicillins Allergy Unknown rash Verified 11/05/22 07:20 duloxetine AdvReac Unknown Other Verified 11/05/22 07:20 Home Medications Medication Instructions Recorded Confirmed Type cetirizine 10 mg tablet (Zyrtec) 10 mg PO DAILY PRN allergies 11/02/22 11/05/22 History fluticasone propionate 50 2 spray intranasal DAILY 11/02/22 11/05/22 History mcg/actuation nasal spray,suspension Current Medications: Active Medications Sodium Chloride (Normal Saline Iv) 500 mls @ 100 mls/hr IV CONT .Q5H VICKY Sedation/Anesthesia: No previous sedation/anesthesia problems (including family history). [facility] Past Medical History Medical History Atypical chest pain GERD (gastroesophageal reflux disease) History of dental problems HLD (hyperlipidemia) Obesity FRANKLIN (obstructive sleep apnea) Right knee injury Surgical History Surgical History History of tonsillectomy Family History Family History Father Family history of throat cancer Social History Social History Social History: Single Smoking status: Never smoker Second hand tobacco smoke exposure: No Alcohol intake: current Alcohol use details: Occasionally (less than weekly) Substance use: current Substance use type: marijuana Other substance usage details: smokes CBD daily Last use: 10/30/22 Current Housing: Decline to Answer Concerned About Future Housing: Decline to Answer Difficulty Paying Gas/Electric Bills: Decline to Answer Difficulty Paying for Meds: Decline to Answer Currently Unemployed: Decline to Answer Education: Decline to Answer Difficulty w/ Childcare or Family Care: Decline to Answer Living arrangements: with family Additional living arrangements comments: lives with girlfriend Occupation/Education: occupation Gender identity (if verbalized by the patient): Male Sexual Orientation (if Verbalized by the Patient): Straight or Heterosexual Spiritual care concerns: No Mod Sed Physical Exam Physical Exam Pre Procedural Exam: Normal: Neck, Throat, Airway, Lungs, Heart Rate, Heart Rhythm, Neuro Exam, Abdomen and Extremities and Variation: Appearance ( overweight white male no apparent distress) and Heart Size ( PMI difficult to palpate) Hours since solid foods: 12 Hours since liquid intake: 12 Mallampati Classification: class II Internal Medicine - PN: Obj Da Vital Signs Vital Signs: Vital Signs - 24 hr 11/05/22 07:21 Temperature 36.5 C Pulse Rate 68 Respiratory Rate 14 Blood Pressure 136/78 Pulse Oximetry 98 Oxygen Delivery Room Air Meds/Results Medications: Active Medications Generic Name Dose Route Start Last Admin Trade Name Freq PRN Reason Stop Dose Admin Sodium Chloride 500 mls @ 100 mls/hr 11/05/22 07:00 Normal Saline Iv IV CONT .Q5H VICKY Labs 11/05/22 07:17 11/05/22 07:17 Labs: Laboratory Results - last 24 hr 11/05/22 07:17 WBC 4.6 RBC 5.33 Hgb 15.7 Hct 45.3 MCV 85.0 MCH 29.5 MCHC 34.7 RDW 12.5 Plt Count 178 MPV 10.7 H Immature Gran % (Auto) 0.2 Neut % (Auto) 40.7 L Lymph % (Auto) 44.7 H Sutton % (Auto) 9.8 H Eos % (Auto) 3.9 Baso % (Auto) 0.7 Lymph # (Auto) 2.06 Sutton # (Auto) 0.5 Eos # (Auto) 0.2 Baso # (Auto) 0.0 Abs Immat Gran (auto) 0.01 Absolute Neuts (auto) 1.9 Absolute Nucleated RBC 0.0 Nucleated RBC % 0.0 Sodium 140 Potassium 3.8 Chlor
--- NOTE | 2022-11-05 08:43 | PM.IMHP ---
H&P: HPI History of Present Illness Date/Time: 11/05/22 08:43 Chief Complaint: the palpitations and intermittent chest pain Narrative: this is a 32-year-old patient who follows with 1 of my partners and is scheduled for a coronary angiogram today because of an abnormal nuclear stress test. The patient does not have any history of coronary artery disease. He has been followed in our office and has been treated symptomatic [place] for premature ventricular complexes there were causing a lot of difficulty with palpitations a couple of years ago after coronavirus infection. He has had a noninvasive workup previously including a cardiac MRI which suggested that he might have had a ventricular septal defect in the past that he had healed he also had a coronary CTA done with normal results. In follow-up a nuclear stress test was done on 10/05/2022 showing normal ejection fraction visually estimated at 60-65% and a medium size area of moderate anterolateral ischemia. For this reason angiography was recommended. The patient's stress test was electrocardiographically negative. Review of Systems Constitutional: Constitutional: Reports no additional constitutional complaints Eyes: Eyes: Reports no additional eye complaints ENT: Reports system reviewed and no additional complaints, except as documented Cardiovascular: Cardiovascular: Reports palpitations Respiratory: Respiratory: Reports no additional respiratory complaints Gastrointestinal: Gastrointestinal: Reports no additional gastrointestinal complaints Genitourinary: Genitourinary: Reports no additional male genitourinary complaints Musculoskeletal: Musculoskeletal: Reports myalgias Integumentary/Breasts: Skin/Breast: Reports system reviewed and no additional complaints, except as docu Neurologic: Reports system reviewed and no additional complaints, except as documented [facility] Past Medical History Medical History Atypical chest pain GERD (gastroesophageal reflux disease) History of dental problems HLD (hyperlipidemia) Obesity FRANKLIN (obstructive sleep apnea) Right knee injury Surgical History Surgical History History of tonsillectomy Family History Family History Father Family history of throat cancer Social History Social History Social History: Single Smoking status: Never smoker Second hand tobacco smoke exposure: No Alcohol intake: current Alcohol use details: Occasionally (less than weekly) Substance use: current Substance use type: marijuana Other substance usage details: smokes CBD daily Last use: 10/30/22 Current Housing: Decline to Answer Concerned About Future Housing: Decline to Answer Difficulty Paying Gas/Electric Bills: Decline to Answer Difficulty Paying for Meds: Decline to Answer Currently Unemployed: Decline to Answer Education: Decline to Answer Difficulty w/ Childcare or Family Care: Decline to Answer Living arrangements: with family Additional living arrangements comments: lives with girlfriend Occupation/Education: occupation Gender identity (if verbalized by the patient): Male Sexual Orientation (if Verbalized by the Patient): Straight or Heterosexual Spiritual care concerns: No Meds Home Medications and Allergies Home Medications Medication Instructions Recorded Confirmed Type cetirizine 10 mg tablet (Zyrtec) 10 mg PO DAILY PRN allergies 11/02/22 11/05/22 History fluticasone propionate 50 2 spray intranasal DAILY 11/02/22 11/05/22 History mcg/actuation nasal spray,suspension Allergies Allergy/AdvReac Type Severity Reaction Status Date / Time Penicillins Allergy Unknown rash Verified 11/05/22 07:20 duloxetine AdvReac Unknown Other Verified 11/05/22 07:20
--- NOTE | 2022-11-05 09:24 | WPDCARDPROC ---
Cardiac Cath Procedure Note Date of procedure:: 11/05/22 Performing physician:: Wesley Cartwright MD Indication:: abnormal nuclear stress test Brief clinical history:: this is a 32-year-old patient with symptomatic PVCs following previous coronavirus infection. He has been found to have abnormal nuclear stress test as an outpatient. He did have a negative coronary CT angiogram in 2020 Procedure Procedure performed:: left heart catheterization Sedation/Medication given:: fentanyl 50 mg Versed 2 mg case start time 9:04 a.m. case end time 9:20 a.m. sedation provided by Nancie Blakely RN, trained observer Access site:: right femoral artery Estimated blood loss:: 20 cc Procedure note:: patient was brought to the cardiac postabsorptive state where the right femoral triangle was prepared and draped in the usual fashion. Anesthesia was provided with 1% lidocaine infiltrated locally. Using the modified Seldinger technique the femoral artery was punctured and a 5 Palestinian vascular sheath was placed. After this left heart catheterization was carried out. I used a 5 Palestinian angled pigtail catheter to document left-sided hemodynamics and to inject LV g in the SAEZ projection. Following this the left coronary artery was engaged and injected using of 5 Palestinian FL4 catheter in the right coronary artery was engaged and injected using a standard 5 Palestinian JR4 catheter. The procedure was then terminated. An angiogram was done of the femoral artery with through the sheath after which it was determined the sheath will be removed with direct manual compression. Procedure was well tolerated and uncomplicated. 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 Findings:: Hemodynamics: Central aortic pressure is 132 over 78 left ventricle 132 over to end-diastolic pressure 14 there is no gradient on pullback across the aortic valve. Left ventricle: The LV is of normal size all segments contract appropriately the global ejection fraction I would visually estimate to be 55-60%. The left main coronary artery is short and widely patent the left anterior descending is a moderate caliber artery extending down to around the apex the LAD and its branches are smooth and angiographically normal. The circumflex is a medium caliber vessel giving rise to 1 significant OM branch. The circumflex system is smooth and angiographically unremarkable. The right coronary artery is large in caliber and dominant to the posterior circulation the RCA is smooth and angiographically normal. Conclusion:: 1. Right coronary dominant circulation with no evidence of coronary artery disease 2. preserved left ventricular systolic function 3. nuclear stress testing is false positive based on this information Wesley Cartwright MD FACC
--- NOTE | 2022-11-05 11:48 | SUR.PHASEII ---
Patient ate 100% of meal tray and tolerated well.
--- NOTE | 2022-11-05 15:40 | SUR.PHASEII ---
Patient discharged via wheelchair to private vehicle. right groin cath site was soft, no hematoma, dressing is c/d/i. 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 All questions were answered. Patient verbalized no complaints and VSS at time of discharge.
== END 2022-11-05 15:37 | disposition home or self-care (01) ==
PROVIDERS: PCP Family Medicine; Visit Provider Specialist
PROC: 4A023N7 Measurement of Cardiac Sampling and Pressure, Left Heart, Percutaneous Approach (ICD-10-PCS; CPT 93452; principal; 2022-11-05 08:30)
DX: R94.39 Abnormal result of other cardiovascular function study (principal); I49.3 Ventricular premature depolarization; G47.33 Obstructive sleep apnea (adult) (pediatric); F10.90 Alcohol use, unspecified, uncomplicated; E66.9 Obesity, unspecified; Z68.36 Body mass index [BMI] 36.0-36.9, adult; F12.90 Cannabis use, unspecified, uncomplicated
CPT/HCPCS: 36415; 80048; 85025; 93458; C1887; C1894; J1644; J2250; J3010; J7040

== ENCOUNTER 2022-11-16 12:24 | Outpatient (CLI) | payer BC, SELFPAY ==
--- NOTE | ~2022-11-16 | US_ITS ---
US arterial duplex LE RT 11/16/2022 13:01 Indication: Right groin pain after recent catheterization Procedure: High-resolution ultrasound of the arteries of the right groin and proximal leg Comparison: No prior studies for comparison. Findings: There is normal flow in the right common femoral, superficial femoral, profundus femoral, c ommon femoral and superficial femoral veins. No evidence for pseudoaneurysm. Impression: 1: Normal limited arterial ultrasound of the right groin without evidence for pseudoaneurysm. Reviewed, dictated and finalized at location B. Impression: 1: Normal limited arterial ultrasound of the right groin without evidence for p seudoaneurysm.
== END 2022-11-16 12:25 | disposition home or self-care (01) ==
LOC: ANHIMG 12:26
PROVIDERS: PCP Family Medicine; Visit Provider Internal Medicine Cardiovascular Disease
DX: M79.604 Pain in right leg (principal)
CPT/HCPCS: 93926

== ENCOUNTER 2022-12-14 14:34 | Outpatient (CLI) | payer BC, SELFPAY ==
--- NOTE | ~2022-12-14 | CT_ITS ---
EXAMINATION: CT pelvis w con DATE: 12/14/2022 15:11 INDICATION: Pelvic joint pain TECHNIQUE: Computed tomography (CT) of the pelvis was performed with 100 CC Omnipaque 350 intravenous contrast. Automated exposure control and iterative reconstruction technique were employed. Exam dose : 1108.36 mGy-cm total exam DLP. COMPARISON: 12/08/2019 pelvis and bilateral hips, reported normal FINDINGS: Small fat-containing umbilical hernia. No pelvic mass lesion or adenopathy or ascites. The urinary bladder, prostate gland and seminal vesic les are unremarkable. Bowel structures are unremarkable. No pelvic bone osteolytic or osteosclerotic lesion is noted. Included lower lumbar spine is unremarka ble except for posterior bulging disc at L5-S1. No spondylolysis or spondylolisthesis at L4-5 or L5-S 1. Hip joint spaces are symmetric and relatively preserved. IMPRESSION: Posterior bulging disc at L5-S1 Reviewed, dictated and finalized at Location A. Reviewed, dictated and finalized at location []
== END 2022-12-14 14:35 | disposition home or self-care (01) ==
PROVIDERS: PCP Family Medicine; Visit Provider Nurse Practitioner Adult Health
DX: R10.2 Pelvic and perineal pain (principal); M25.551 Pain in right hip; M51.27 Other intervertebral disc displacement, lumbosacral region
CPT/HCPCS: 72193; Q9967

== ENCOUNTER 2022-12-25 09:44 | Outpatient (CLI) | payer BC, SELFPAY ==
[2022-12-25 10:27] LABS: Hematocrit 43.3 % (42.0-52.0); Mean Corpuscular HGB Conc 34.6 g/dl (32-36); Mean Corpuscular Hemoglobin 29.4 pg (26-34); Mean Corpuscular Volume 84.9 fl (80-100); Mean Platelet Volume 10.7 fl (7.4-10.4); Platelet Count Result 179 k/mm3 (150-375); Red Cell Distribution Width 12.4 % (11.5-14.5); White Blood Count 4.5 K/mm3 (4.5-10.0)
[2022-12-25 10:31] LABS: Appearance Urine Clear (Clear); Bilirubin Urine Negative (Negative); Blood Urine Negative (Negative); Color Urine Yellow (Yellow); Glucose Urine UA Negative (Negative); Ketones Urine Negative (Negative); Leukocyte Esterase Ur Negative LEU/UL (NEGATIVE); Nitrate Urine Negative (Negative); Protein Urine Negative (Negative); Specific Grav Ur 1.017 (1.001-1.035); Urobilinogen Urine 0.2 mg/dL (<2.0); pH Urine 6.5 (5.0-9.0)
[2022-12-25 10:35] LABS: Anion Gap 3 mmol/L (8-16); Blood Urea Nitrogen 15 mg/dL (9-20); Calcium 8.5 mg/dL (8.4-10.2); Carbon Dioxide 30 mmol/L (22-30); Chloride 103 mmol/L (98-107); Estimated Glomerular Filt Rate > 60; Glucose 92 mg/dL (65-110); Sodium 136 mmol/L (137-145)
[2022-12-25 10:36] LABS: Add Urine Microscopic? NO
== END 2022-12-25 09:45 | disposition home or self-care (01) ==
LOC: ANHLAB 09:46
PROVIDERS: PCP Family Medicine; Visit Provider Physician Assistant
DX: M54.50 Low back pain, unspecified (principal); R39.11 Hesitancy of micturition
CPT/HCPCS: 36415; 80048; 81003; 85027; 87086

== ENCOUNTER 2023-04-05 14:00 | Outpatient (CLI) | payer BC, SELFPAY ==
--- NOTE | ~2023-04-05 | US_ITS ---
EXAMINATION: US soft tissue lower back DATE: 04/05/2023 14:42 INDICATION: Benign lipomatous neoplasm of skin and subcutaneous soft tissue. TECHNIQUE: Multiple grayscale and Doppler ultrasound images of the lower back were obtained. COMPARISON: None FINDINGS: In the right lower back, there are 3.3 cm, 2.2 cm, and 1.7 cm subcutaneous hyperechoic mass es with echotexture similar to normal subcutaneous fat. IMPRESSION: 1. Three subcutaneous masses in the right lower back measuring up to 3.3 cm, likely lipomas. Reviewed, dictated and finalized at location E. IMPRESSION: 1. Three subcutaneous masses in the right lower back measuring up to 3.3 cm, li eligio lipomas.
== END 2023-04-05 14:01 | disposition home or self-care (01) ==
PROVIDERS: PCP Family Medicine; Visit Provider Physician Assistant
DX: D17.30 Benign lipomatous neoplasm of skin and subcutaneous tissue of unspecified sites (principal)
CPT/HCPCS: 76705

== ENCOUNTER 2023-06-11 14:01 | Outpatient (CLI) | payer BC, SELFPAY ==
--- NOTE | ~2023-06-11 | XR_ITS ---
Cervical Spine: AP, lateral, open-mouth views Clinical History: Pain Findings: The normal lordotic curve is maintained. The vertebral bodies and posterior elements appea r intact. The intervertebral disc spaces are well maintained. Pre-vertebral soft tissues are unremar kable. Impression: No significant abnormality is seen. Reviewed, dictated and finalized at [facility]. INSPECTOR Impression: No significant abnormality is seen.
== END 2023-06-11 14:02 | disposition home or self-care (01) ==
LOC: ANHIMG 14:06
PROVIDERS: PCP Family Medicine; Visit Provider Family Medicine
DX: M54.2 Cervicalgia (principal)
CPT/HCPCS: 72040

== ENCOUNTER 2023-06-14 15:11 | Outpatient (CLI) | payer BC, SELFPAY ==
--- NOTE | ~2023-06-14 | CT_ITS ---
EXAMINATION: CT brain wo con DATE: 06/14/2023 15:36 INDICATION: Vertigo. TECHNIQUE: Computed tomography (CT) of the head was performed without intravenous contrast. The mA wa s adjusted according to patient size. Iterative reconstruction technique was employed. The dose-lengt h product was 605.33 mGy-cm. COMPARISON: None FINDINGS: There is no intracranial hemorrhage, acute infarction, or abnormal intracranial mass lesion . The ventricles are normal in size. There is mild mucosal thickening in the paranasal sinuses. The m astoid air cells are normal. IMPRESSION: 1. Normal brain. Reviewed, dictated and finalized at location E. ANCE HANDLER IMPRESSION: 1. Normal brain.
== END 2023-06-14 15:12 | disposition home or self-care (01) ==
PROVIDERS: PCP Family Medicine; Visit Provider Family Medicine
DX: R11.0 Nausea (principal); R42 Dizziness and giddiness; R51.9 Headache, unspecified
CPT/HCPCS: 70450

== ENCOUNTER 2023-07-17 17:07 | Emergency (ER) | payer OTHER, BC, SELFPAY ==
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
[2023-07-17 17:58] VITALS: BP 143/82; PULSE 101; RESP 18; TEMP 37.4; O2SAT 99
[2023-07-17 19:05] LABS: Influenza A QL RT-PCR Positive (Negative); Influenza B QL RT-PCR Negative (Negative); RSV RNA, RT-PCR Negative (Negative); SARS-CoV-2 RNA PCR Negative (Negative)
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
== END 2023-07-17 21:22 | disposition home or self-care (01) ==
PROVIDERS: Student in an Organized Health Care Education/Training Program; Emergency Provider Physician Assistant; PCP Family Medicine
DX: J10.1 Influenza due to other identified influenza virus with other respiratory manifestations (principal); M54.2 Cervicalgia; M54.50 Low back pain, unspecified; V89.2XXA Person injured in unspecified motor-vehicle accident, traffic, initial encounter; E78.5 Hyperlipidemia, unspecified; Z20.822 Contact with and (suspected) exposure to COVID-19
CPT/HCPCS: 72125; 72131; 87637; 99284

== ENCOUNTER 2024-03-02 09:47 | Outpatient (CLI) | payer BC, SELFPAY ==
--- NOTE | ~2024-03-02 | US_ITS ---
Abdominal Sonogram: Real-time sonographic imaging of the abdomen was performed. Clinical History: Abdominal pain Findings: The liver appears normal with no evidence of mass lesion or bile duct dilatation. Main por mar vein demonstrates normal direction of flow. The spleen is normal in size without evidence of foca l lesion. The gallbladder is well distended, and appears normal with no evidence of gallstone or wal l thickening. The common bile duct measures 4 mm. The visualized pancreas, aorta, and IVC are unrema rkable. The right kidney measures 9.3 cm in length and the left kidney measures 11.4 cm. There is n o hydronephrosis or renal calculus. Impression: Unremarkable abdominal ultrasound. Reviewed, dictated and finalized at location . Impression: Unremarkable abdominal ultrasound.
--- NOTE | ~2024-03-02 | US_ITS ---
EXAMINATION: US thyroid DATE: 03/02/2024 10:27 INDICATION: Saida's thyroiditis. TECHNIQUE: Multiple ultrasound images of the thyroid were obtained. COMPARISON: None. FINDINGS: The right thyroid lobe measures 4.7 x 1.3 x 1.3 cm. The left thyroid lobe measures 4.7 x 1.2 x 1.7 c m. There is normal echotexture and echogenicity throughout the thyroid gland. No discrete nodules id entified. Normal vascular flow is present. IMPRESSION: 1. Normal thyroid. Reviewed, dictated and finalized at location A. IMPRESSION: 1. Normal thyroid.
== END 2024-03-02 09:48 ==
LOC: MICIMG 09:48
PROVIDERS: PCP Emergency Medicine; Visit Provider Emergency Medicine
DX: R14.0 Abdominal distension (gaseous) (principal)
CPT/HCPCS: 76536; 76700

== ENCOUNTER 2024-03-20 01:01 | Day surgery (SDC) | payer BC, SELFPAY ==
[2024-02-27 13:25] VITALS: BMI 32.3
[2024-03-20 11:24] VITALS: BP 133/85; PULSE 67; RESP 20; TEMP 35.8; O2SAT 100
[2024-03-20] MEDS: LACTATED RINGERS 1,000 ML 150 ML IV CONT (11:33)
--- NOTE | 2024-03-20 12:17 | SUR.PREOP ---
pt informed that procedure is delayed
--- NOTE | 2024-03-20 13:52 | WPDANESEPPF ---
Anes - Initial Pre Proc Eval Procedure: Operation Date: 03/20/24 13:00 Proposed Procedures p Esophagogastroduodenoscopy & Colonoscopy - Jeremiah Elias MD Date/Time: 03/20/24 13:52 Surgeon: Jeremiah Elias MD Pre Op Diagnosis: GERD, Abd.Distension, [facility] Patient Data Age: 33 Gender: M Height: 1.85 m Weight: 111.5 kg Last Vital Signs Temp 96.4 F L 03/20/24 11:24 Pulse 67 03/20/24 11:24 Resp 20 03/20/24 11:24 BP 133/85 03/20/24 11:24 Pulse Ox 100 03/20/24 11:24 O2 Del Method Room Air 03/20/24 11:24 Allergies Allergy/AdvReac Type Severity Reaction Status Date / Time Penicillins Allergy Unknown rash Verified 03/20/24 11:23 duloxetine AdvReac Unknown Other Verified 03/20/24 11:23 Home Medications Medication Instructions Recorded Confirmed Type No Home Medications 08/23/23 02/27/24 History Patient hx anesthesia problems: none Family hx anesthesia problems: none Results Review: All pre-operative results and documents have been reviewed as part of the pre-operative evaluation. [facility] Past Medical History Medical History Atypical chest pain GERD (gastroesophageal reflux disease) History of dental problems HLD (hyperlipidemia) Obesity FRANKLIN (obstructive sleep apnea) Right knee injury Surgical History Surgical History History of tonsillectomy Family History Family History Father Family history of throat cancer Social History Social History Social History: Single Smoking status: Never smoker Second hand tobacco smoke exposure: No Alcohol intake: never Substance use: current Substance use type: marijuana Lack of Transportation: No Lack of Food: Never True Current Housing: I Have Housing Concerned About Future Housing: No Difficulty Paying Gas/Electric Bills: No Difficulty Paying for Meds: No Currently Unemployed: No Education: Decline to Answer Difficulty w/ Childcare or Family Care: Decline to Answer Living arrangements: with family Additional living arrangements comments: lives with girlfriend Occupation/Education: occupation Gender identity (if verbalized by the patient): Male Sexual Orientation (if Verbalized by the Patient): Straight or Heterosexual Spiritual care concerns: No Anes - Eval Final PreProcedure Day of Procedure 03/20/24 13:52 Patient weight: obese Heart: regular rate and rhythm Lungs: clear to auscultation Airway: Mallampati scale class II Neurological: alert and oriented Last oral intake: >/= 8 hours ASA classification: III Emergent: no Anesthetic plan: proceed Anesthesia type and monitoring: general GIVS and standard monitoring Results Review: All pre-operative results and documents have been reviewed as part of the pre-operative evaluation. Informed Consent: The patient's anesthetic plan and its attendant risks and benefits were discussed with the patient/family/POA. Questions were solicited and answers provided to the satisfaction of the patient/family/POA.
--- NOTE | 2024-03-20 14:07 | PM.HPGS ---
History of Present Illness History of Present Illness Consent: Risks, benefits, and alternatives have been discussed and questions answered. Patient agrees to proceed with procedure. Chief complaint: GERD, Abd.Distension, CIBH Narrative: Onesimo Gimenez is a 33 year old male with gerd better with ppi, also intermittent n/v, loose stools. Here for first egd and colonoscopy Review of Systems Review of Systems: All systems reviewed & are unremarkable except as noted in HPI and below PMFSH Past Medical History Medical History (Updated 03/20/24 @ 14:08 by Jeremiah Elias MD) Atypical chest pain GERD (gastroesophageal reflux disease) History of dental problems HLD (hyperlipidemia) Loose stools Obesity FRANKLIN (obstructive sleep apnea) Right knee injury Surgical History Surgical History History of tonsillectomy Family History Family History Father Family history of throat cancer Social History Social History Social History: Single Smoking status: Never smoker Second hand tobacco smoke exposure: No Alcohol intake: never Substance use: current Substance use type: marijuana Lack of Transportation: No Lack of Food: Never True Current Housing: I Have Housing Concerned About Future Housing: No Difficulty Paying Gas/Electric Bills: No Difficulty Paying for Meds: No Currently Unemployed: No Education: Decline to Answer Difficulty w/ Childcare or Family Care: Decline to Answer Living arrangements: with family Additional living arrangements comments: lives with girlfriend Occupation/Education: occupation Gender identity (if verbalized by the patient): Male Sexual Orientation (if Verbalized by the Patient): Straight or Heterosexual Spiritual care concerns: No Meds Home Medications and Allergies Home Medications Medication Instructions Recorded Confirmed Type No Home Medications 08/23/23 02/27/24 History Allergies Allergy/AdvReac Type Severity Reaction Status Date / Time Penicillins Allergy Unknown rash Verified 03/20/24 11:23 duloxetine AdvReac Unknown Other Verified 03/20/24 11:23 Vital Signs Vital Signs - 24 hr 03/20/24 11:24 Temperature 96.4 F L Pulse Rate 67 Respiratory Rate 20 Blood Pressure 133/85 Pulse Oximetry 100 Oxygen Delivery Room Air Exam Const: General: comfortable and no acute distress HENMT: Face/Nose/Sinus: Normal nares present Eyes: General: appearance normal, both eyes and all related structures Neck: Neck: no JVD Resp: Auscultation: clear to auscultation bilaterally Cardio: Rate: regular rate Rhythm: regular rhythm GI: Inspection: non-distended GI Palp: Yes Soft to palpation Skin: General skin exam: normal color Neuro: General: gait normal Speech: normal speech Extrem: General: normal to inspection Psych: Mental Status: mental status grossly normal Assessment and Plan Assessment and plan (1) GERD (gastroesophageal reflux disease): Code(s): K21.9 - Gastro-esophageal reflux disease without esophagitis Status: Acute Assessment and Plan: egd (2) Nausea: Code(s): R11.0 - Nausea Status: Acute (3) Loose stools: Code(s): R19.5 - Other fecal abnormalities Status: Acute Assessment and Plan: colonoscopy
--- NOTE | 2024-03-20 14:15 | SUR.OPER ---
EGD [id number]. Colon start time 1419.
[2024-03-20 14:30] VITALS: BP 108/64; PULSE 66; RESP 18; O2SAT 99
[2024-03-20 14:40] VITALS: BP 118/73; PULSE 61; RESP 19; O2SAT 99
[2024-03-20 14:50] VITALS: BP 117/83; PULSE 62; RESP 20; O2SAT 99
== END 2024-03-20 15:04 | disposition home or self-care (01) ==
PROVIDERS: PCP Emergency Medicine; Visit Provider Internal Medicine Gastroenterology
PROC: 0DJ08ZZ Inspection of Upper Intestinal Tract, Via Natural or Artificial Opening Endoscopic (ICD-10-PCS; CPT 43235; principal; 2024-03-20 13:00)
DX: R19.7 Diarrhea, unspecified (principal); R11.2 Nausea with vomiting, unspecified; K21.9 Gastro-esophageal reflux disease without esophagitis; E78.5 Hyperlipidemia, unspecified; G47.33 Obstructive sleep apnea (adult) (pediatric); E66.9 Obesity, unspecified; Z68.32 Body mass index [BMI] 32.0-32.9, adult
CPT/HCPCS: 45380; 43239; 88305; J2704; J7120

== ENCOUNTER 2025-04-05 16:47 | Outpatient (CLI) | payer OTHER, SELFPAY ==
--- OUTSIDE RECORDS SUMMARY | 2022-11-13 19:00 | XMS_ITS | Continuity of Care Document ---
Author Organization [facility] Address [address] [place] [address] Phone Care Team Providers Care Cloth Winder Machine Operator Name Role Phone Weslye Cobb MD, MD Unavailable Unavaila ble Allergies, Adverse Reactions, Alerts Substance Reaction Status Criticality Penicillins Skin Rashes Active No Information Procedures Procedure Date Pre Payment X-ray exam both knees, standing 023 X-ray exam knee, 1 or 2 views 3 Independent Medical Examination SONNY Advance Directives Directive Yes / No Effective Date File Name No Information Encounters Encounter Description Practice Location Reason(s) For Visit Diagnoses Date Provider Providers Copied on Encounter [facility], [address], [id number], tel:[phone] [facility] No Information 3 Reza Olson. [address] [place] [address], [place], [place], [id number] , [place]. tel: [phone] Independent Medical Examination SONNY [facility], [address] [place] [address], [id number], [place] tel:[phone] [facility] right knee (chief complaint) Pain in right knee 3 Reza Olson. [address] [facility], [address], [id number] , [place]. tel: [phone] Family History Family Member Type Diagnosis Age At Onset Problem Family history of Cancer, un known Problem Family history of Cardiovasc ular disease Problem Family history of hypertensi on Payers Payer name Insurance type Covered republican ID Edd Barry (s) [id number] Social History Type Description Quantity Date Captured Comments Sex Male Smoking Status No Information Chief Complaint And Reason For Visit No Information Reason For Referral Reason For Referral No Information Plan Of Treatment Date Type Action Status Referral Ordered: X-ray exam knee, 1 or 2 views RT ordered Referral Ordered: X-ray exam both knees, standing ordered History Of Present Illness Encounter Date Complaint History Of Prese nt Illness right knee Onesimo presents to the office for right knee complaints. Functional Status Date Functional Assessmen t No Information Instructions Date Instruction Additional Infor mation No Information Assessments Type Assessment Date No Information Patient Care Teams Name Effective Dates (start - stop) Status Members No Information
--- OUTSIDE RECORDS SUMMARY | 2024-01-07 04:40 | XMS_ITS | Continuity of Care Document ---
Author Organization [facility] Address [address] [facility] [address] [place] [address] Phone Care Team Providers Care Quality Control Expert Name Role Phone Sugar Lambert MD Unavailable Unavailable Allergies, Adverse Reactions, Alerts Substance Reaction Status Criticality PENICILLIN Rash Active No Information Medications Medication Instructions Dosage Effective Dates (start - stop) Status Comments Pepcid 20 mg tablet take 1 tablet by oral route 2 times every day 20 MG - Active benzonatate 100 mg capsule take as directed - No Longer Active Procedures Procedure Date Perc Test New (Level 4) OFFICE/OUTPATIENT VISIT ORDER PROCESSING CLERK Registration Fee Advance Directives Directive Yes / No Effective Date File Name No Information Encounters Encounter Description Practice Location Reason(s) For Visit Diagnoses Date Provider Providers Copied on Encounter New (Level 4) OFFICE/OUTPA TIENT VISIT [facility], [address] [facility] [address], [place], [place], [id number], [place] tel:[phone] [facility] reaction, food (chief complaint) Body mass index (BMI) 33.0-33.9, adultLactose intolerance, unspecifiedGERD w/o esophagitisOther allergic rhinitis 4 Fausto Wooten. [address], [place], [address], [place]. tel:[phone] Referring Provider: Kwan Michaels, [address] [facility] [address], [place], [address]. tel:[phone] [facility], [address] [place] [address], [place], [place], [id number], tel:[phone] [facility] No Information 4 Fausto Cheshil. [address], [place], [address], [place]. tel:[phone] [facility], [address] [place] [address], [place], [place], [id number], [place] tel:[phone] [facility] No Information 4 Misc Prov. . Family History Family Member Type Diagnosis Age At Onset Problem No family history of Rhiniti s Problem No family history of Asthma Payers Payer name Insurance type Covered democrat ID Ehclaire farfan(s) [facility] [id number] Social History Type Description Quantity Date Captured Comments Alcohol Use Details Unknown Caffeine Use Details Unknown Tobacco Use Status Current non-smoker Smoking Status Never smoker Non-Smoking Tobacco Use Details : No Details Available : No Details Available Sex Male Gender Identity Vital Signs Date / Time: Height Weight BMI Pulse Rate Blood Pressure Temperature Respiratory Rate Body Surface Area Head Circumference Head Circ. Percentile Wt./Franck. Percentile BMI percentile Pulse Ox Inhaled Ox 9:37 AM 72.00 in 113.489 kg (250.20 lbs) 33.9 3 kg/m eter (2) 78 /min 118/74 mm[Hg] 98.20 F 2.40 meter(2) 99 % Chief Complaint And Reason For Visit From encounter dated '01/07/2024 09:40'. reaction, food (chief complaint). Description: Adverse Food ReactionMilk/Dairy - He reports that with dairy products, he will have diarrhea a few hours later. He will also have heartburn (30 minutes after ingestion) and vomiting (twice weekly). He will feel anxiety and nausea (with high volume ingestion). No dyspnea or hives with any exposure.He has mostly removed milk/dairy products from his diet. He does tolerate butter without significant issues. He avoids liquid milk, cheese, ice cream, andyogurt. He has tried lactose-free milk (Fairlife) with some improvement in symptoms. He has tried He has a baseline level of GERD. He wakes up tasting acid. He throws up acid frequently. He will havetrue emesis as well. Sugar is another food that causes heartburn. He has used pepto-bismol, and omeprazole without benefit. RhinitisThe patient has a history of perennial rhinitis with seasonal worsening in spring/fall. The symptoms include nasal congestion, rhinorrhea (ant/post) w/ ocular pruritusand tearing. Currently, the patient is on cetirizine (zyrtec) or loratadine (claritin) PRN + allergy eye drops, which does provide adequate relief.PMH: arrhythmiaPSH: R knee surgeryMedication Allergies:PCN - He reports rash when he was a baby. No FH of asthma, rhinitis SHTobacco: Never smokerOccupation: Works at a [employer] Environmental HistoryLives in a house w/ central air/forced heat, w/o evidence of mold/water damageFlooring in Bedroom: carpetPets: none Reason For Referral Reason For Referral No Information History Of Present Illness Encounter Date Complaint History Of Prese nt Illness reaction, food Adverse Food Beaumont ctionMilk/Dairy - He reports that with dairy products, he will have diarrhea a few hours later. He will also have heartburn (30 minutes after ingestion) and vomiting (twice weekly). He will feel anxiety and nausea (with high volume ingestion). No dyspnea or hives with any exposure.He has mostly removed milk/dairy products from his diet. He does tolerate butter without significant issues. He avoids liquid milk, cheese, ice cream, and yogurt. He has tried lactose-free milk (Fairlife) with some improvement in symptoms. He has tried He has a baseline level of GERD. He wakes up tasting acid. He throws up acid frequently. He will have true emesis as well. Sugar is another food that causes heartburn. He has used pepto-bismol, and omeprazole without benefit. RhinitisThe patient has a history of perennial rhinitis with seasonal worsening in spring/fall. The symptoms include nasal congestion, rhinorrhea (ant/post) w/ ocular pruritus and tearing. Currently, the patient is on cetirizine (zyrtec) or loratadine (claritin) PRN + allergy eye drops, which does provide adequate relief.PMH: arrhythmiaPSH: R knee surgeryMedication Allergies:PCN - He reports rash when he was a baby. No FH of asthma, rhinitis SHTobacco: Never smokerOccupation: Works at a [employer] Environmental HistoryLives in a house w/ central air/forced heat, w/o evidence of mold/water damageFlooring in Bedroom: carpetPets: none Functional Status Date Functional Assessmen t No Information Instructions Date Instruction Additional Infor anabel Giving encouragement to exercise Related to Body mass index [BMI] 33.0-33.9, adult Assessments Type Assessment Date assessment Body mass index (BMI) 33.0-33.9, adult assessment Lactose intolerance, unspecified assessment GERD w/o esophagitis assessment Other allergic rhinitis 024 Patient Care Teams Name Effective Dates (start - stop) Status Members No Information
--- OUTSIDE RECORDS SUMMARY | 2024-07-30 07:50 | XMS_ITS | Continuity of Care Document ---
Author Organization [facility] Address [address] [place] [address] Phone Care Team Providers Care It Business Analyst Name Role Phone Claudio Kennedy Unavailable Unavailable Procedures Procedure Date Progress Note Therapeutic Activities Neuromuscular Re-Ed Therapeutic Exercise Therapeutic Activities Neuromuscular Re-Ed Therapeutic Exercise Manual Therapy Therapeutic Activities Neuromuscular Re-Ed Therapeutic Exercise Therapeutic Activities Therapeutic Exercise Neuromuscular Re-Ed Manual Therapy PT Evaluation Moderate Complexity Neuromuscular Re-Ed Therapeutic Exercise Manual Therapy Advance Directives Directive Yes / No Effective Date File Name No Information Encounters Encounter Description Practice Location Reason(s) For Visit Diagnoses Date Provider Providers Copied on Encounter [facility], [id number], [phone] [place] No Information 5 Lizzeth Snyder. [address] [facility], [place], [address], [place]. tel: [phone] [facility], [address], [id number], tel:[phone] [place] No Information Dec-2 0-202 4 Muehl Claudio. [address] [facility], [address], [place], [address], [place]. tel: [phone] Referring Provider: Jared Lee [facility] [address], [place], [address]. tel:[phone] [address], [place], [place], [id number], [place] tel:[phone] [place] No Information Dec-1 6-202 4 Muehl Claudio. [address] [facility], [address], [place], [address], [place]. tel: [phone] Referring Provider: Jared Lee [facility] [address], [place], [address]. tel:[phone] [address] [facility] [place], [place], [id number], [place] tel:[phone] [place] No Information Dec-1 4 Muehl Claudio. [address] [place] [address], [address], [place], [address], [place]. tel: [phone] Referring Provider: Jared Lee [facility] [address], [place], [address]. tel:[phone] [address], [place], [place], [id number], [place] tel:[phone] [place] No Information Dec-0 9-202 4 Muehl Claudio. [address] [facility], [address], [place], [address], [place]. tel: [phone] Referring Provider: Jared Lee [facility] [address], [place], [address]. tel:[phone], [place], [place], [id number], [place] tel:[phone] [place] No Information Dec-0 6-202 4 Muehl Claudio. [address] [facility], [address], [place], [address], [place]. tel: [phone] Referring Provider: Jared [address], [place], [address]. tel:[phone] Family History Family Member Type Diagnosis Age At Onset No Information Payers Payer name Insurance type Covered democrat ID Authoriza tiavinash(s) [facility] [id number] Social History Type Description Quantity Date Captured Comments Sex Male Smoking Status No Information Chief Complaint And Reason For Visit No Information Reason For Referral Reason For Referral No Information History Of Present Illness Encounter Date Complaint History Of Prese nt Illness No Information Functional Status Date Functional Assessmen t No Information Instructions Date Instruction Additional Infor mation No Information Assessments Type Assessment Date No Information Patient Care Teams Name Effective Dates (start - stop) Status Members No Information
--- OUTSIDE RECORDS SUMMARY | 2025-04-05 17:08 | XMS_ITS | Clinical Summary ---
Author Organization [facility] Address [address] [place] [address] Phone Care Team Providers Care Associate Professor Of Philosophy Name Role Phone Miko Aguilar MD Primary Care Provider Unavailab le Allergies No known active allergies Medications No known medications Social History Tobacco Use Types Packs/Day Years Used Date Smoking Tobacco: Never Assessed Sex and Gender Information Value Date Recorded Sex Assigned at Not on file Legal Sex Male 5:58 AM DIRECTOR OF ADULT EPILEPSY Gender Identity Not on file Sexual Orientation Not on file Last Filed Vital Signs Vital Sign Reading Time Taken Comments Blood Pressure 118/59 06/08/2010 12:00 PM DIRECTOR OF ADULT EPILEPSY Pulse 64 06/08/2010 12:00 PM DIRECTOR OF ADULT EPILEPSY Temperature 36.3 C (97.4 F) 06/08/2010 9:58 AM DIRECTOR OF ADULT EPILEPSY Respiratory Rate 18 06/08/2010 12:00 PM DIRECTOR OF ADULT EPILEPSY Oxygen Saturation 99% 06/08/2010 9:58 AM DIRECTOR OF ADULT EPILEPSY Inhaled Oxygen Concentration - - Weight 80.7 kg (178 lb) 06/08/2010 9:58 AM DIRECTOR OF ADULT EPILEPSY Height 182.9 cm (6') 06/08/2010 9:58 AM DIRECTOR OF ADULT EPILEPSY Body Mass Index 24.14 06/08/2010 9:58 AM DIRECTOR OF ADULT EPILEPSY Plan of Treatment Health Maintenance Due Date Last Done Comments DTAP/TDAP/TD VACCINES (1 - Tdap) 10/20/2010 HEPATITIS B VACCINES (1 of 3 - 19+ 3-dose series) 10/06 HPV VACCINES (1 - 3-dose SCDM series) 10/20/2018 INFLUENZA VACCINE (#1) 2025 Care Teams Associate Professor Of Philosophy Relationship Specialty Start Date End Date Miko Aguilar MD PCP - General Family Practice 06/08/10
--- OUTSIDE RECORDS SUMMARY | 2025-04-05 17:08 | XMS_ITS | Clinical Summary ---
Author Organization [facility] Address [facility] [place] [address] Care Team Providers Care Keyboarding Teacher Name Role Phone Unavailable Primary Care Provider Unavailabl e Social History Tobacco Use Types Packs/Day Years Used Date Smoking Tobacco: Never Assessed Sex and Gender Information Value Date Recorded Sex Assigned at Not on file Legal Sex Male 8:55 PM CDT Gender Identity Not on file Sexual Orientation Not on file Plan of Treatment Health Maintenance Due Date Last Done Comments Annual Physical 10/20/1994 Hepatitis C 10/20/2009 DTaP, Tdap and Td Vaccines ( 1 - Tdap) 10/20/2010 Hepatitis B Vaccines (1 of 3 - 19+ 3-dose series) 10/20/2010 HPV Vaccines (1 - 3-dose SCD M series) 10/20/2018 COVID-19 Vaccine ( - 2023-2 5 season) 2025 Meningococcal B Vaccine Aged Out No l onger eligible based on patient's age to complete this topic Meningococcal Vaccine Aged Out No jesus roland eligible based on patient's age to complete this topic Pneumococcal Vaccine: Pediat rics (0 to 5 Years) and At-Risk Patients (6 to 49 Years) Aged Out No longer eligible b ased on patient's age to complete this topic RSV Immunizations Under 20 Months Aged Out No longer eligible based on patient's age to complete this topic
--- OUTSIDE RECORDS SUMMARY | 2025-04-05 17:08 | XMS_ITS | Clinical Summary ---
Author Organization [facility] Address [address] [place] [address] Care Team Providers Care Field Technical Support Consultant Name Role Phone Kwan Pimentel MD Primary Care Provider [phone] Pedro Villanueva MD Unavailable [phone] Source Comments [facility],non-owned Affiliates and Associated Physician Practices is amultiple site organization consisting of ambulatory clinics and hospital sitesin [place], [place], [place] and [place]. This disclosure is being madepursuant to the Care Everywhere program and may not contain all information available regarding this patient. Last updated 18.[facility] Allergies Active Allergy Reactions Criticality Noted Date Comments Duloxetine Other Medium 09/08/2020 Patient experienced twitching, anxiety, leg pain and muscle spasms while taking Duloxetine Penicillins Rash Medium 08/08/2020 Medications * Be aware that medications may not be up to date on this document. Alwaysverify current medications with the patient. albuterol HFA (PROVENTIL;VENT LIZZ;PROAIR) 108 (90 Base) MCG/ACT inhaler Inhale 2 puffs by mouth 4 times daily as needed after meals/at bedtime 06/25/2020 Active ALPRAZolam (XANAX) 0.125 MG tablet Take 0.125 mg by mouth 2 times daily as needed for Anxiety Active sertraline (ZOLOFT) 12.5 MG tablet Take 12.5 mg by mouth once daily Active clonazePAM (KLONOPIN) 0.5 MG tablet 11/24/2020 Active melatonin 5 MG tablet Take 1 (one) tablet by mouth at bedtime 11/25/2020 Active Active Problems Problem Noted Date Diagnosed Date Muscle pain 11/27/2020 Pain in both lower extremities 11/27/2020 [place] on CPAP 09/08/2020 Snoring 09/08/2020 Malaise and fatigue 09/08/2020 Class 1 obesity due to exces s calories with serious comorbidity and body mass index (BMI) of 32.0 to 32.9 in adult 09/08/2020 Sleep disorder, shift-work 09/08/2020 Hypersomnia 09/08/2020 Recurrent isolated sleep paralysis 09/08/2020 Essential hypertension 09/08/2020 Pulmonary HTN 09/08/2020 Frequent PVCs 09/08/2020 GERD (gastroesophageal reflux disease) Depression with anxiety 09/08/2020 Insomnia due to medical condition 09/08/2020 Palpitations 08/09/2020 Shortness of breath 08/09/2020 History of COVID-19 08/09/2020 Family History Medical History Relation Name Comments Cancer - Esophageal Father Hyperlipidemia Father Hypertension Father Relation Name Status Comments Father Alive Mother Alive half-brother 1 Alive half-brother 2 Alive half-sister 1 Alive half-sister 2 Alive Social History Tobacco Use Types Packs/Day Years Used Date Smoking Tobacco: Never Smokeless Tobacco: Never Alcohol Use Standard Drinks/Week Comments Not Currently 0 (1 standard drink = 0.6 oz pur e alcohol) Sex and Gender Information Value Date Recorded Sex Assigned at Not on file Legal Sex Male 9:10 AM [employer] Gender Identity Not on file Sexual Orientation Not on file Last Filed Vital Signs Vital Sign Reading Time Taken Comments Blood Pressure 112/72 11/25/2020 1:37 PM CDT Pulse 80 11/25/2020 1:37 PM CDT Temperature 36.6 C (97.9 F) 11/25/2020 1:37 PM CDT Respiratory Rate 20 10/20/2020 9:30 AM CDT Oxygen Saturation 98% 11/25/2020 1:37 PM CDT Inhaled Oxygen Concentration - - Weight 108.7 kg (239 lb 9.6 oz) 11/25/2020 1:37 PM CDT Height 182.9 cm (6') 11/25/2020 1:37 PM CDT Body Mass Index 32.5 11/25/2020 1:37 PM CDT Plan of Treatment Health Maintenance Due Date Last Done Comments HIV SCREENING 10/20/2006 HEPATITIS C SCREENING 10/16/2009 DTAP/TDAP/TD VACCINES (1 - Tdap) 10/20/2010 HEPATITIS B VACCINE (1 of 3 - 19+ 3-dose series) 10/20/2010 HPV VACCINE (1 - 3-dose SCDM series) 10/20/2018 DEPRESSION SCREENING 07/08/2024 COVID-19 VACCINE (1 - 2023-2 5 season) 2025 INFLUENZA VACCINE (#1) 2025 ZOSTER VACCINE (1 of 2) 10/20/2041 HIB VACCINE Aged Out No longer eligi ble based on patient's age to complete this topic MENINGOCOCCAL (Group B) VACC INE SHARED DECISION-MAKING Aged Out No longer eligibl e based on patient's age to complete this topic MENINGOCOCCAL GROUPS A/C/Y/W VACCINE Aged Out No longer eligible b ased on patient's age to complete this topic PNEUMOCOCCAL VACCINE Aged Out No long er eligible based on patient's age to complete this topic Insurance [facility] SELF PAY NO INSURANCE Member Subscriber Plan / Payer (Ef fective for All Dates) Name:Ted Knott Member ID:Not on file Relation to Subscriber:Not on file Name:TED KNOTT Subscriber ID:Not on file (Home) Address: [address] [place] [address] [place] [address] Payer ID:Not on file Group ID:Not on file Type:Self Pay Address: [facility] Care Teams Field Technical Support Consultant Relationship Specialty Start Date End Date Kwan Pimentel MD [address] [place] [address] PCP - General Family Medicine 08/08/20 Pedro Villanueva MD [address] [place] [address] Internal Medicine Sleep Medicine 11/25/20
--- OUTSIDE RECORDS SUMMARY | 2025-04-05 17:08 | XMS_ITS | Patient Health Record ---
Author Organization [facility] Address [address] [place] [address] Care Team Providers Care Glazier Supervisor Name Role Phone Jr Gonzalez Unavailable [phone] Reason For Referral No Information Medications Medication SIG (Take, Route, Frequency, Duration) Notes Start Date End Date Status Naproxen 500 MG Tablet Oral 09/07/2020 Active hydrOXYzine HCl 25 MG Tablet Oral 09/07/2020 Active ProAir HFA 108 (90 Base) MCG/ACT Aerosol Solution Inhalation 09/07/2020 Active ALPRAZolam 0.25 MG Tablet Oral 09/07/2020 Active Fluticasone Propionate Diskus 50 MCG/ACT Aerosol Powder Breath Activated Inhalation *Reorder from SECU4 for eRx and Interaction Alerts* 09/07/2020 Active Dicyclomine HCl 10 MG Capsule Oral 09/07/2020 Active clonazePAM 0.5 MG Tablet Oral 09/07/2020 Active Sertraline HCl 50 MG Tablet Oral 09/07/2020 Active Social History Social History Additional Details Category Social Info Options Details Migrated Social History Migrated Social History Alcohol Intake: None 12/02/2019,Tobacco Years: Former smoker 12/02/2019 Plan Of Treatment No Information Insurance Providers Payer Name Payer Address Payer Phone Subscriber Number Group Number Insured Name Patient Relationship to Insured Coverage Start Date Coverage End Date [facility] [address] [place] [address] [id number] [id number] TED KNOTT Self - patient is the insured"
[2025-04-05 17:41] LABS: Hematocrit 42.3 % (42.0-52.0); Hemoglobin 14.7 g/dL (14.0-18.0); Immature Granulocyte Percent A 0.2 % (0-0.5); Lymphocytes Absolute Auto 2.60 K/mm3 (0.9-3.2); Mean Corpuscular HGB Conc 34.8 g/dl (32-36); Mean Corpuscular Hemoglobin 29.6 pg (26-34); Mean Corpuscular Volume 85.1 fl (80-100); Nucleated Red Blood Cells Absolute Auto 0.000 K/mm3 (0.0-0.012); Nucleated Red Blood Cells Perc 0.0 % (0.0-0.2); Platelet Count Result 173 k/mm3 (150-375); Red Blood Count 4.97 M/mm3 (4.6-6.20); White Blood Count 5.6 K/mm3 (4.5-10.0)
[2025-04-05 17:54] LABS: Alanine Aminotransferase 30 U/L (6-50); Albumin Level 4.3 g/dL (3.5-5.1); Alkaline Phosphatase 66 U/L (38-126); Anion Gap 5 mmol/L (4-12); Aspartate Amino Transferase 33 U/L (17-59); Bilirubin,Total 0.3 mg/dL (0.2-1.3); Blood Urea Nitrogen 18 mg/dL (9-20); Calcium 8.7 mg/dL (8.4-10.2); Carbon Dioxide 27 mmol/L (22-30); Chloride 104 mmol/L (98-107); Cholesterol 184 mg/dL (0-200); Estimated Glomerular Filt Rate > 60; Glucose 95 mg/dL (65-110); HDL Direct 33 mg/dL; Potassium 3.9 mmol/L (3.4-5.0); Sodium 136 mmol/L (137-145); Total Protein 7.5 g/dL (6.3-8.2); Triglycerides 269 mg/dL (<150)
[2025-04-05 18:29] LABS: Thyroid Stimulating Hormone 1.270 uIU/mL (0.465-4.680)
== END 2025-04-05 16:48 | disposition home or self-care (01) ==
PROVIDERS: PCP Emergency Medicine
DX: R00.2 Palpitations (principal)
CPT/HCPCS: 36415; 80053; 80061; 84443; 85025